=== PATIENT | male | born 1935 | race Two or more races ===

== ENCOUNTER 2024-06-02 23:11 | Inpatient (IN) | payer MEDICARE, OTHER ==
[~2024-06-02] VITALS: Ht 152.4 cm; Wt 62.1 kg
[2024-06-03 00:20] LABS: EOSINOPHILS # (AUTO) 0.3 K/uL (0.0-0.7); EOSINOPHILS % (AUTO) 5.5 % (0.0-6.0); HEMATOCRIT 30 % (39-51); HEMOGLOBIN 9.6 g/dL (13.5-17.5); LYMPHOCYTES # (AUTO) 1.1 K/uL (0.8-4.8); LYMPHOCYTES % (AUTO) 23.8 % (20.0-44.0); MEAN CORPUSCULAR HEMOGLOBIN 25 PG (26.0-33.0); MEAN CORPUSCULAR HGB CONC 32 g/dl (31.0-36.0); MEAN CORPUSCULAR VOLUME 79 fL (80-96); MONOCYTES # (AUTO) 0.7 K/uL (0.1-1.30); MONOCYTES % (AUTO) 15.7 % (2.0-12.0); NEUTROPHILS # (AUTO) 2.4 K/uL (1.8-8.9); PLATELET COUNT (AUTO) 274 K/uL (150-450); RED BLOOD CELL COUNT(AUTO) 3.79 MIL/uL (4.5-6.0); RED CELL DISTRIBUTION WIDTH 16.2 % (11.5-15.0); WHITE BLOOD COUNT (AUTO) 4.5 K/uL (4.3-11.0)
[2024-06-03] MEDS ORDERED: VANCOMYCIN 1 GM /D5W 250 ML PB IV ONE (00:27)
[2024-06-03] MEDS: VANCOMYCIN 1 GM in IV D5W 250 ML IV ONE (00:30)
[2024-06-03 00:31] LABS: CALCIUM, SERUM 6.6 mg/dL (8.5-10.1); CARBON DIOXIDE 29 mmol/L (21-32); CHLORIDE 103 mmol/L (98-107); CREATININE 1.2 mg/dL (0.6-1.3); GLUCOSE 86 mg/dL (74-106); POTASSIUM 3.9 mmol/L (3.5-5.1); SODIUM SERUM 141 mmol/L (136-145); UREA NITROGEN, BLOOD 38 mg/dL (7-18)
[2024-06-03 00:36] LABS: LACTIC ACID 0.8 mmol/L (0.4-2.0)
[2024-06-03 00:43] LABS: ALANINE AMINOTRANSFERASE 12 U/L (12-78); ALBUMIN 2.5 g/dL (3.4-5.0); ALCOHOL, BLOOD < 3 mg/dL (0-10); ALKALINE PHOSPHATASE 95 U/L (46-116); ASPARTATE AMINOTRANSFERASE 14 U/L (15-37); BILIRUBIN,DIRECT 0.1 mg/dL (0.0-0.2); BILIRUBIN,TOTAL 0.3 mg/dL (0.2-1.0); TOTAL PROTEIN, SERUM 7.3 g/dL (6.4-8.2)
[2024-06-03 00:45] LABS: ACETAMINOPHEN <10 ug/ml (10-30); SALICYLATE < 2.3 mg/dL (2.8-20.0)
[2024-06-03 00:53] LABS: INR 1.02 (0.91-1.10); PROTHROMBIN TIME 10.8 SECS (9.2-11.1)
[2024-06-03 00:57] LABS: APPEARANCE,URINE CLEAR (CLEAR); BILIRUBIN,URINE NEGATIVE (NEGATIVE); BLOOD, URINE NEGATIVE Ery/uL (NEGATIVE); COLOR,URINE YELLOW (YELLOW); KETONES,URINE TRACE mg/dL (NEGATIVE); LEUKOCYTE ESTERASE ,URINE NEGATIVE (NEGATIVE); NITRITE, URINE NEGATIVE (NEGATIVE); PROTEIN,URINE NEGATIVE (NEGATIVE); UGLUCOSE NEGATIVE (NEGATIVE)
[2024-06-03 01:02] LABS: ADD URINE CULTURE NO; BACTERIA,URINE Rare /HPF (None Seen); RBC,URINE 0-2 /HPF (0-2); SQUAMOUS EPITHELIAL CELL,UR Few /HPF (None Seen)
[2024-06-03 01:11] LABS: AMPHETAMINE, URINE NEGATIVE (NEGATIVE); BARBITURATE, URINE NEGATIVE (NEGATIVE); BENZODIAZEPINE, URINE NEGATIVE (NEGATIVE); CANNABINOID, URINE NEGATIVE (NEGATIVE); COCCAINE, URINE NEGATIVE (NEGATIVE); OPIATE, URINE NEGATIVE (NEGATIVE); PHENCYCLIDINE SCREEN,URINE NEGATIVE (NEGATIVE)
[2024-06-03 01:30] VITALS: BP 122/82; TEMP 97.7; O2SAT 98
[2024-06-03] MEDS ORDERED: OLANZAPINE 10 MG VIAL IM PRN (02:00)
[2024-06-03] MEDS ORDERED: MAG HYDROX/AL HYDROX/SIMETH 30 ML UDC PO PRN (02:00)
[2024-06-03] MEDS ORDERED: ONDANSETRON HCL/PF 4 MG/2 ML VIAL IVP PRN (02:00)
[2024-06-03] MEDS: ENOXAPARIN SODIUM 40 MG/0.4 ML DISP.SYRIN SQ SCH (03:19)
[2024-06-03] MEDS ORDERED: CETI10TA18 PO (04:17)
[2024-06-03] MEDS ORDERED: LEVO25TA7 PO (04:17)
[2024-06-03] MEDS ORDERED: MELA10CA PO (04:17)
[2024-06-03] MEDS ORDERED: DIVA250T PO (04:17)
[2024-06-03] MEDS ORDERED: AMLO-212 PO (04:17)
[2024-06-03] MEDS ORDERED: CLON0.5T4 PO (04:17)
[2024-06-03] MEDS ORDERED: QUET50TA PO (04:17)
[2024-06-03] MEDS ORDERED: TRAM50TA2 PO (04:17)
[2024-06-03] MEDS ORDERED: FERR-68 PO (04:17)
[2024-06-03] MEDS ORDERED: LORA-259 PO (04:17)
[2024-06-03] MEDS ORDERED: ASPI-1169 PO (04:17)
[2024-06-03 06:37] LABS: BASOPHILS % (AUTO) 0.6 % (0.0-2.0); EOSINOPHILS # (AUTO) 0.3 K/uL (0.0-0.7); EOSINOPHILS % (AUTO) 5.9 % (0.0-6.0); HEMATOCRIT 32 % (39-51); HEMOGLOBIN 10.3 g/dL (13.5-17.5); LYMPHOCYTES % (AUTO) 18.5 % (20.0-44.0); MEAN CORPUSCULAR HEMOGLOBIN 25 PG (26.0-33.0); MEAN CORPUSCULAR HGB CONC 33 g/dl (31.0-36.0); MEAN CORPUSCULAR VOLUME 78 fL (80-96); MONOCYTES # (AUTO) 0.8 K/uL (0.1-1.30); MONOCYTES % (AUTO) 14.9 % (2.0-12.0); NEUTROPHILS # (AUTO) 3.2 K/uL (1.8-8.9); NEUTROPHILS % (AUTO) 60.1 % (43.0-81.0); PLATELET COUNT (AUTO) 289 K/uL (150-450); RED BLOOD CELL COUNT(AUTO) 4.03 MIL/uL (4.5-6.0); RED CELL DISTRIBUTION WIDTH 16.2 % (11.5-15.0); WHITE BLOOD COUNT (AUTO) 5.3 K/uL (4.3-11.0)
[2024-06-03 07:43] LABS: ALANINE AMINOTRANSFERASE 12 U/L (12-78); ALBUMIN 2.3 g/dL (3.4-5.0); ALKALINE PHOSPHATASE 98 U/L (46-116); ASPARTATE AMINOTRANSFERASE 12 U/L (15-37); BILIRUBIN,DIRECT 0.2 mg/dL (0.0-0.2); BILIRUBIN,TOTAL 0.4 mg/dL (0.2-1.0); CALCIUM, SERUM 6.3 mg/dL (8.5-10.1); CARBON DIOXIDE 30 mmol/L (21-32); CHLORIDE 104 mmol/L (98-107); GLUCOSE 82 mg/dL (74-106); MAGNESIUM 2.4 mg/dL (1.8-2.4); PHOSPHORUS 3.7 mg/dL (2.5-4.9); POTASSIUM 3.9 mmol/L (3.5-5.1); SODIUM SERUM 144 mmol/L (136-145); UREA NITROGEN, BLOOD 30 mg/dL (7-18)
[2024-06-03] MEDS ORDERED: DIVA-76 PO (08:00)
[2024-06-03] MEDS: PANTOPRAZOLE 40 MG TABLET.DR PO SCH (08:06)
[2024-06-03] MEDS: MUPIROCIN OINT 2% 22 GM TUBE TP SCH (10:53)
[2024-06-03 10:56] LABS: FERRITIN 176 ng/mL (8-388)
[2024-06-03 11:39] LABS: IRON, SERUM 28 ug/dl (50-175); TOTAL IRON BINDING CAPACITY 182 ug/dl (250-450)
[2024-06-03] MEDS: DIVALPROEX SODIUM 125 MG CAP.SPRINK PO SCH (11:56)
[2024-06-03] MEDS: LORAZEPAM 0.5 MG TABLET PO SCH (11:56)
[2024-06-03] MEDS ORDERED: DIVALPROEX SODIUM 250 MG TABLET.DR PO SCH (17:00)
[2024-06-03] MEDS: FERROUS SULFATE (325 MG) 325 MG/TAB TABLET PO SCH (17:48)
[2024-06-03] MEDS: clonazePAM 0.5 MG TABLET PO SCH (17:48)
[2024-06-03] MEDS: CEFEPIME 1 GM in IV D5W 50 ML IV SCH (17:48)
[2024-06-03 20:00] VITALS: BP 135/78; TEMP 98.1; O2SAT 97
[2024-06-03] MEDS: QUETIAPINE FUMARATE 25 MG TABLET PO SCH (21:33)
[2024-06-03] MEDS ORDERED: Medication Not On Formulary EA (Melatonin 10 MG) PO SCH (22:00)
[2024-06-03] MEDS ORDERED: QUETIAPINE FUMARATE 25 MG TABLET PO SCH (22:00)
[2024-06-03] MEDS: LORAZEPAM 1 MG TABLET PO PRN (23:01)
[2024-06-04] MEDS ORDERED: VANCOMYCIN 1 GM in IV D5W 250ml IV SCH (01:00)
[2024-06-04] MEDS: VANCOMYCIN 750 MG in IV D5W 250 ML IV SCH (01:15)
[2024-06-04 07:08] LABS: CALCIUM, SERUM 6.3 mg/dL (8.5-10.1); CARBON DIOXIDE 25 mmol/L (21-32); CHLORIDE 105 mmol/L (98-107); CREATININE 0.8 mg/dL (0.6-1.3); GLUCOSE 88 mg/dL (74-106); POTASSIUM 3.9 mmol/L (3.5-5.1); SODIUM SERUM 143 mmol/L (136-145); UREA NITROGEN, BLOOD 14 mg/dL (7-18)
[2024-06-04] MEDS: LEVOTHYROXINE SODIUM 25 MCG TABLET PO SCH (08:21)
[2024-06-04] MEDS: ASPIRIN 81 MG TAB.CHEW PO SCH (08:32)
[2024-06-04] MEDS: AMLODIPINE BESYLATE 5 MG TABLET PO SCH (08:32)
[2024-06-04 16:00] VITALS: BP 122/67; TEMP 97.9; O2SAT 97
[2024-06-04 22:10] VITALS: BP 110/96; TEMP 97.7; O2SAT 96
[2024-06-04 23:18] VITALS: BP 110/96; TEMP 97.7; O2SAT 96
[2024-06-05] MEDS: VANCOMYCIN 1 GM in IV D5W 250 ML IV SCH (00:37)
[2024-06-05 07:00] VITALS: BP 144/76; TEMP 98.4; O2SAT 98
[2024-06-05 07:26] LABS: CALCIUM, SERUM 6.8 mg/dL (8.5-10.1); CARBON DIOXIDE 31 mmol/L (21-32); CHLORIDE 105 mmol/L (98-107); CREATININE 0.7 mg/dL (0.6-1.3); GLUCOSE 89 mg/dL (74-106); POTASSIUM 3.9 mmol/L (3.5-5.1); SODIUM SERUM 145 mmol/L (136-145); UREA NITROGEN, BLOOD 12 mg/dL (7-18)
[2024-06-05] MEDS: IV D5/ 0.9% NACL 1,000 ML IV PRN (14:41)
[2024-06-05 16:00] VITALS: BP 125/76; TEMP 97.5; O2SAT 97
[2024-06-05 20:00] VITALS: BP 135/70; TEMP 98.1; O2SAT 95
[2024-06-05] MEDS: Z GUARD REMEDY 4 OZ OINT TP PRN (20:06)
[2024-06-06 07:43] LABS: EOSINOPHILS # (AUTO) 0.3 K/uL (0.0-0.7); HEMATOCRIT 36 % (39-51); HEMOGLOBIN 11.3 g/dL (13.5-17.5); LYMPHOCYTES # (AUTO) 1.1 K/uL (0.8-4.8); LYMPHOCYTES % (AUTO) 27.6 % (20.0-44.0); MEAN CORPUSCULAR HEMOGLOBIN 25 PG (26.0-33.0); MEAN CORPUSCULAR HGB CONC 32 g/dl (31.0-36.0); MEAN CORPUSCULAR VOLUME 79 fL (80-96); MONOCYTES # (AUTO) 0.5 K/uL (0.1-1.30); MONOCYTES % (AUTO) 12.8 % (2.0-12.0); NEUTROPHILS # (AUTO) 2.1 K/uL (1.8-8.9); NEUTROPHILS % (AUTO) 51.6 % (43.0-81.0); PLATELET COUNT (AUTO) 382 K/uL (150-450); RED BLOOD CELL COUNT(AUTO) 4.48 MIL/uL (4.5-6.0); WHITE BLOOD COUNT (AUTO) 4.1 K/uL (4.3-11.0)
[2024-06-06 07:51] LABS: CALCIUM, SERUM 6.8 mg/dL (8.5-10.1); CARBON DIOXIDE 29 mmol/L (21-32); CHLORIDE 105 mmol/L (98-107); CREATININE 0.8 mg/dL (0.6-1.3); GLUCOSE 92 mg/dL (74-106); MAGNESIUM 2.3 mg/dL (1.8-2.4); PHOSPHORUS 3.9 mg/dL (2.5-4.9); POTASSIUM 3.8 mmol/L (3.5-5.1); SODIUM SERUM 144 mmol/L (136-145); UREA NITROGEN, BLOOD 10 mg/dL (7-18)
[2024-06-06 08:00] VITALS: BP 132/100; TEMP 99.5; O2SAT 94
[2024-06-06 16:00] VITALS: BP 137/89; TEMP 99.7; O2SAT 98
[2024-06-06 20:00] VITALS: BP 128/71; TEMP 98.1; O2SAT 97
[2024-06-06] MEDS: PERMETHRIN 5% CRM 60 GM TUBE TP ONE (20:41)
[2024-06-07 07:08] LABS: CALCIUM, SERUM 6.1 mg/dL (8.5-10.1); CARBON DIOXIDE 34 mmol/L (21-32); CHLORIDE 105 mmol/L (98-107); CREATININE 0.8 mg/dL (0.6-1.3); GLUCOSE 91 mg/dL (74-106); POTASSIUM 4.3 mmol/L (3.5-5.1); SODIUM SERUM 142 mmol/L (136-145); UREA NITROGEN, BLOOD 13 mg/dL (7-18)
[2024-06-07 07:09] LABS: BILIRUBIN,TOTAL 0.3 mg/dL (0.2-1.0); TOTAL PROTEIN, SERUM 6.7 g/dL (6.4-8.2)
[2024-06-07 08:00] VITALS: BP 138/79; TEMP 99.5; O2SAT 100
[2024-06-07] MEDS: QUETIAPINE FUMARATE 25 MG TABLET PO SCH ×2 (13:19→22:18)
[2024-06-07] MEDS: DIVALPROEX SODIUM 125 MG CAP.SPRINK PO SCH (13:19)
[2024-06-07 16:00] VITALS: BP 135/62; TEMP 99.7; O2SAT 96
[2024-06-07] MEDS: clonazePAM 0.5 MG TABLET PO SCH (17:14)
[2024-06-07 20:00] VITALS: BP_SYST 139; BP_SYST 147; BP_DIAS 66; BP_DIAS 77; TEMP 98.8; O2SAT 94
[2024-06-08] MEDS: VANCOMYCIN HCL 1.25 GM in IV D5W 250 ML IV SCH (00:22)
[2024-06-08 07:25] LABS: BASOPHILS % (AUTO) 1.1 % (0.0-2.0); EOSINOPHILS # (AUTO) 0.4 K/uL (0.0-0.7); EOSINOPHILS % (AUTO) 8.8 % (0.0-6.0); HEMATOCRIT 34 % (39-51); HEMOGLOBIN 10.8 g/dL (13.5-17.5); LYMPHOCYTES # (AUTO) 1.2 K/uL (0.8-4.8); LYMPHOCYTES % (AUTO) 29.7 % (20.0-44.0); MEAN CORPUSCULAR HEMOGLOBIN 25 PG (26.0-33.0); MEAN CORPUSCULAR HGB CONC 32 g/dl (31.0-36.0); MEAN CORPUSCULAR VOLUME 79 fL (80-96); MONOCYTES # (AUTO) 0.5 K/uL (0.1-1.30); MONOCYTES % (AUTO) 12.7 % (2.0-12.0); NEUTROPHILS # (AUTO) 1.9 K/uL (1.8-8.9); NEUTROPHILS % (AUTO) 47.7 % (43.0-81.0); PLATELET COUNT (AUTO) 326 K/uL (150-450); RED BLOOD CELL COUNT(AUTO) 4.25 MIL/uL (4.5-6.0); RED CELL DISTRIBUTION WIDTH 16.2 % (11.5-15.0)
[2024-06-08 07:36] LABS: CALCIUM, SERUM 6.5 mg/dL (8.5-10.1); CARBON DIOXIDE 34 mmol/L (21-32); CHLORIDE 105 mmol/L (98-107); CREATININE 0.8 mg/dL (0.6-1.3); GLUCOSE 90 mg/dL (74-106); MAGNESIUM 2.1 mg/dL (1.8-2.4); PHOSPHORUS 3.8 mg/dL (2.5-4.9); POTASSIUM 3.4 mmol/L (3.5-5.1); SODIUM SERUM 143 mmol/L (136-145); UREA NITROGEN, BLOOD 13 mg/dL (7-18)
[2024-06-08] MEDS: POTASSIUM CHLORIDE 20 MEQ TAB.PRT.SR PO SCH (09:50)
[2024-06-08 20:00] VITALS: BP 144/71; TEMP 98; O2SAT 96
[2024-06-08] MEDS: MAGNESIUM HYDROXIDE 30 ML UDC PO PRN (22:24)
[2024-06-09 07:30] VITALS: BP_SYST 141; BP_SYST 147; BP_DIAS 85; BP_DIAS 99; TEMP 97.9; O2SAT 100; O2SAT 98
[2024-06-09 15:46] LABS: CALCIUM, SERUM 6.5 mg/dL (8.5-10.1); CARBON DIOXIDE 34 mmol/L (21-32); CHLORIDE 106 mmol/L (98-107); CREATININE 0.8 mg/dL (0.6-1.3); GLUCOSE 102 mg/dL (74-106); POTASSIUM 4.1 mmol/L (3.5-5.1); SODIUM SERUM 146 mmol/L (136-145); UREA NITROGEN, BLOOD 13 mg/dL (7-18)
[2024-06-09 16:00] VITALS: BP 135/90; TEMP 97.7; O2SAT 99
[2024-06-09 20:00] VITALS: BP 136/88; TEMP 97.9; O2SAT 97
[2024-06-10 06:05] LABS: BASOPHILS % (AUTO) 1.3 % (0.0-2.0); EOSINOPHILS # (AUTO) 0.3 K/uL (0.0-0.7); EOSINOPHILS % (AUTO) 7.9 % (0.0-6.0); HEMATOCRIT 34 % (39-51); HEMOGLOBIN 10.7 g/dL (13.5-17.5); LYMPHOCYTES # (AUTO) 1.1 K/uL (0.8-4.8); LYMPHOCYTES % (AUTO) 28.3 % (20.0-44.0); MEAN CORPUSCULAR HEMOGLOBIN 25 PG (26.0-33.0); MEAN CORPUSCULAR HGB CONC 32 g/dl (31.0-36.0); MEAN CORPUSCULAR VOLUME 79 fL (80-96); MONOCYTES # (AUTO) 0.5 K/uL (0.1-1.30); MONOCYTES % (AUTO) 12.8 % (2.0-12.0); NEUTROPHILS % (AUTO) 49.7 % (43.0-81.0); PLATELET COUNT (AUTO) 309 K/uL (150-450); RED BLOOD CELL COUNT(AUTO) 4.23 MIL/uL (4.5-6.0); RED CELL DISTRIBUTION WIDTH 16.4 % (11.5-15.0)
[2024-06-10 06:28] LABS: CALCIUM, SERUM 6.5 mg/dL (8.5-10.1); CARBON DIOXIDE 34 mmol/L (21-32); CHLORIDE 105 mmol/L (98-107); CREATININE 0.8 mg/dL (0.6-1.3); GLUCOSE 83 mg/dL (74-106); MAGNESIUM 2.4 mg/dL (1.8-2.4); PHOSPHORUS 3.1 mg/dL (2.5-4.9); POTASSIUM 3.3 mmol/L (3.5-5.1); SODIUM SERUM 145 mmol/L (136-145); UREA NITROGEN, BLOOD 13 mg/dL (7-18)
[2024-06-10 07:00] VITALS: BP 126/64; TEMP 97.7; O2SAT 96
[2024-06-10 12:00] VITALS: BP 126/64; TEMP 97.7; O2SAT 96
[2024-06-10] MEDS: POTASSIUM CHLORIDE 20 MEQ TAB.PRT.SR PO SCH (12:24)
[2024-06-10 16:00] VITALS: BP 120/60; TEMP 97.7; O2SAT 98
[2024-06-10 16:37] LABS: CALCIUM, SERUM 6.5 mg/dL (8.5-10.1); CARBON DIOXIDE 33 mmol/L (21-32); CHLORIDE 104 mmol/L (98-107); CREATININE 0.8 mg/dL (0.6-1.3); GLUCOSE 125 mg/dL (74-106); POTASSIUM 3.9 mmol/L (3.5-5.1); SODIUM SERUM 142 mmol/L (136-145); UREA NITROGEN, BLOOD 16 mg/dL (7-18)
[2024-06-10 20:08] VITALS: BP 127/70; TEMP 97.7; O2SAT 94
[2024-06-10] MEDS: ZOLPIDEM TARTRATE 5 MG TABLET PO PRN (21:20)
[2024-06-11] MEDS: VANCOMYCIN 1 GM in IV D5W 250 ML IV SCH (01:15)
[2024-06-11 07:54] LABS: BASOPHILS % (AUTO) 1.1 % (0.0-2.0); EOSINOPHILS # (AUTO) 0.3 K/uL (0.0-0.7); EOSINOPHILS % (AUTO) 6.1 % (0.0-6.0); HEMATOCRIT 34 % (39-51); LYMPHOCYTES # (AUTO) 1.1 K/uL (0.8-4.8); LYMPHOCYTES % (AUTO) 25.1 % (20.0-44.0); MEAN CORPUSCULAR HEMOGLOBIN 26 PG (26.0-33.0); MEAN CORPUSCULAR HGB CONC 32 g/dl (31.0-36.0); MEAN CORPUSCULAR VOLUME 79 fL (80-96); MONOCYTES # (AUTO) 0.5 K/uL (0.1-1.30); MONOCYTES % (AUTO) 11.7 % (2.0-12.0); NEUTROPHILS # (AUTO) 2.4 K/uL (1.8-8.9); PLATELET COUNT (AUTO) 311 K/uL (150-450); RED BLOOD CELL COUNT(AUTO) 4.29 MIL/uL (4.5-6.0); RED CELL DISTRIBUTION WIDTH 16.7 % (11.5-15.0); WHITE BLOOD COUNT (AUTO) 4.4 K/uL (4.3-11.0)
[2024-06-11 08:00] VITALS: BP 179/92; TEMP 98.1; O2SAT 98
[2024-06-11 08:08] LABS: CALCIUM, SERUM 7.3 mg/dL (8.5-10.1); CARBON DIOXIDE 27 mmol/L (21-32); CHLORIDE 104 mmol/L (98-107); CREATININE 0.8 mg/dL (0.6-1.3); GLUCOSE 92 mg/dL (74-106); MAGNESIUM 2.4 mg/dL (1.8-2.4); POTASSIUM 3.6 mmol/L (3.5-5.1); SODIUM SERUM 143 mmol/L (136-145); UREA NITROGEN, BLOOD 15 mg/dL (7-18)
[2024-06-11 15:20] LABS: CALCIUM, SERUM 6.4 mg/dL (8.5-10.1); CARBON DIOXIDE 30 mmol/L (21-32); CHLORIDE 105 mmol/L (98-107); CREATININE 0.7 mg/dL (0.6-1.3); GLUCOSE 95 mg/dL (74-106); POTASSIUM 3.5 mmol/L (3.5-5.1); SODIUM SERUM 144 mmol/L (136-145); UREA NITROGEN, BLOOD 10 mg/dL (7-18)
[2024-06-11 16:00] VITALS: BP 137/66; TEMP 98.3; O2SAT 96
[2024-06-11 20:00] VITALS: BP 114/97; TEMP 97.9; O2SAT 96
[2024-06-12 07:00] VITALS: BP 103/77; TEMP 97.9; O2SAT 96
[2024-06-12 14:53] LABS: CALCIUM, SERUM 6.8 mg/dL (8.5-10.1); CARBON DIOXIDE 28 mmol/L (21-32); CHLORIDE 104 mmol/L (98-107); GLUCOSE 107 mg/dL (74-106); POTASSIUM 3.8 mmol/L (3.5-5.1); SODIUM SERUM 142 mmol/L (136-145); UREA NITROGEN, BLOOD 12 mg/dL (7-18)
[2024-06-12 16:00] VITALS: BP 103/74; TEMP 97.4; O2SAT 96
[2024-06-12 20:00] VITALS: BP 127/65; TEMP 98.2; O2SAT 94
[2024-06-13 08:00] VITALS: BP 122/54; TEMP 99; O2SAT 98
[2024-06-13 08:30] VITALS: BP 114/58; TEMP 97.2; O2SAT 96
[2024-06-13] MEDS: QUETIAPINE FUMARATE 25 MG TABLET PO SCH ×2 (12:17→21:26)
[2024-06-13 15:15] LABS: CALCIUM, SERUM 6.8 mg/dL (8.5-10.1); CARBON DIOXIDE 33 mmol/L (21-32); CHLORIDE 102 mmol/L (98-107); GLUCOSE 96 mg/dL (74-106); POTASSIUM 3.6 mmol/L (3.5-5.1); SODIUM SERUM 141 mmol/L (136-145); UREA NITROGEN, BLOOD 14 mg/dL (7-18)
[2024-06-13 16:00] VITALS: BP 133/64; TEMP 99.1; O2SAT 98
[2024-06-13 20:00] VITALS: BP 114/58; TEMP 97.2; O2SAT 96
[2024-06-13] MEDS: DIVALPROEX SODIUM 125 MG CAP.SPRINK PO SCH (21:26)
[2024-06-14 07:07] LABS: BASOPHILS # (AUTO) 0.1 K/uL (0.0-0.2); BASOPHILS % (AUTO) 1.1 % (0.0-2.0); EOSINOPHILS # (AUTO) 0.3 K/uL (0.0-0.7); EOSINOPHILS % (AUTO) 5.8 % (0.0-6.0); HEMATOCRIT 32 % (39-51); HEMOGLOBIN 10.1 g/dL (13.5-17.5); LYMPHOCYTES # (AUTO) 1.4 K/uL (0.8-4.8); LYMPHOCYTES % (AUTO) 24.3 % (20.0-44.0); MEAN CORPUSCULAR HEMOGLOBIN 26 PG (26.0-33.0); MEAN CORPUSCULAR HGB CONC 32 g/dl (31.0-36.0); MEAN CORPUSCULAR VOLUME 79 fL (80-96); MONOCYTES # (AUTO) 0.7 K/uL (0.1-1.30); MONOCYTES % (AUTO) 13.3 % (2.0-12.0); NEUTROPHILS # (AUTO) 3.1 K/uL (1.8-8.9); NEUTROPHILS % (AUTO) 55.5 % (43.0-81.0); PLATELET COUNT (AUTO) 270 K/uL (150-450); RED BLOOD CELL COUNT(AUTO) 3.98 MIL/uL (4.5-6.0); RED CELL DISTRIBUTION WIDTH 16.6 % (11.5-15.0); WHITE BLOOD COUNT (AUTO) 5.6 K/uL (4.3-11.0)
[2024-06-14 07:19] LABS: CARBON DIOXIDE 31 mmol/L (21-32); CHLORIDE 104 mmol/L (98-107); CREATININE 0.9 mg/dL (0.6-1.3); GLUCOSE 85 mg/dL (74-106); MAGNESIUM 2.2 mg/dL (1.8-2.4); POTASSIUM 3.8 mmol/L (3.5-5.1); SODIUM SERUM 142 mmol/L (136-145); UREA NITROGEN, BLOOD 14 mg/dL (7-18)
[2024-06-14 07:30] VITALS: BP 136/104; O2SAT 90
[2024-06-14 08:35] VITALS: BP 143/76; TEMP 98.2; O2SAT 98
[2024-06-14] MEDS: ACETAMINOPHEN 325 MG TABLET PO PRN (14:38)
[2024-06-14 16:00] VITALS: BP 155/105; TEMP 98.6
[2024-06-14 16:55] LABS: CARBON DIOXIDE 33 mmol/L (21-32); CHLORIDE 104 mmol/L (98-107); CREATININE 0.9 mg/dL (0.6-1.3); GLUCOSE 98 mg/dL (74-106); POTASSIUM 3.6 mmol/L (3.5-5.1); SODIUM SERUM 143 mmol/L (136-145); UREA NITROGEN, BLOOD 12 mg/dL (7-18)
[2024-06-14 20:00] VITALS: BP 143/76; TEMP 98.2; O2SAT 98
[2024-06-14] MEDS: PERMETHRIN 5% CRM 60 GM TUBE TP ONE (20:06)
[2024-06-15 08:00] VITALS: BP 146/61; TEMP 97.9; O2SAT 98
[2024-06-15 16:00] VITALS: BP 148/79; TEMP 98.4; O2SAT 96
[2024-06-15] MEDS ORDERED: OLANZAPINE 2.5 MG TABLET PO PRN (16:00)
[2024-06-15] MEDS: OLANZAPINE 2.5 MG TABLET PO SCH (16:49)
[2024-06-15 20:00] VITALS: BP 120/70; TEMP 97.7; O2SAT 95
[2024-06-15] MEDS: OLANZAPINE 10 MG TABLET PO SCH (21:46)
[2024-06-15 22:42] VITALS: BP 120/70; TEMP 97.7; O2SAT 95
[2024-06-16 08:00] VITALS: BP 140/52; TEMP 98.9; O2SAT 84
[2024-06-16 16:00] VITALS: BP 134/53; TEMP 97.9; O2SAT 100
[2024-06-16 20:00] VITALS: BP 143/95; TEMP 98.4; O2SAT 96
[2024-06-17] VITALS: BP 143/95; TEMP 98.4; O2SAT 100
[2024-06-17 07:24] LABS: CALCIUM, SERUM 7.2 mg/dL (8.5-10.1); CARBON DIOXIDE 31 mmol/L (21-32); CHLORIDE 103 mmol/L (98-107); CREATININE 0.8 mg/dL (0.6-1.3); GLUCOSE 86 mg/dL (74-106); POTASSIUM 3.4 mmol/L (3.5-5.1); SODIUM SERUM 143 mmol/L (136-145); UREA NITROGEN, BLOOD 14 mg/dL (7-18)
[2024-06-17 08:38] VITALS: BP 144/92; TEMP 97.7; O2SAT 100
[2024-06-17] MEDS: PANTOPRAZOLE 40 MG/PACK PACK PO SCH (09:24)
[2024-06-17] MEDS ORDERED: POTASSIUM CHLORIDE 20 MEQ TAB.PRT.SR PO ONE (11:00)
[2024-06-17] MEDS: POTASSIUM CL. PREMIX PERIPHER. 50 ML IV SCH (11:33)
[2024-06-17] MEDS: risperiDONE 0.25 MG TABLET PO SCH (14:21)
[2024-06-17 16:52] VITALS: BP 154/102; TEMP 97.7; O2SAT 100
[2024-06-17 20:00] VITALS: BP_SYST 141; BP_SYST 154; BP_DIAS 102; BP_DIAS 113; TEMP 97.7; TEMP 98.2; O2SAT 100; O2SAT 95
[2024-06-18 07:26] LABS: CALCIUM, SERUM 6.6 mg/dL (8.5-10.1); CARBON DIOXIDE 30 mmol/L (21-32); CHLORIDE 105 mmol/L (98-107); CREATININE 0.7 mg/dL (0.6-1.3); GLUCOSE 92 mg/dL (74-106); POTASSIUM 3.6 mmol/L (3.5-5.1); SODIUM SERUM 143 mmol/L (136-145); UREA NITROGEN, BLOOD 13 mg/dL (7-18)
[2024-06-18 07:30] VITALS: BP 105/64; TEMP 98.6; O2SAT 100
[2024-06-18] MEDS ORDERED: SULF1TAB48 PO (17:51)
[2024-06-18 20:00] VITALS: BP 139/49; TEMP 98.1; O2SAT 96
[2024-06-18] MEDS: SULFAMETH/TRIMETH 800/160 MG 1 UDTAB TABLET PO SCH (21:00)
[2024-06-18] MEDS: OLANZAPINE 10 MG VIAL IM PRN (21:53)
[2024-06-19 06:52] LABS: CALCIUM, SERUM 6.5 mg/dL (8.5-10.1); CARBON DIOXIDE 29 mmol/L (21-32); CHLORIDE 108 mmol/L (98-107); CREATININE 0.8 mg/dL (0.6-1.3); GLUCOSE 94 mg/dL (74-106); POTASSIUM 3.5 mmol/L (3.5-5.1); SODIUM SERUM 147 mmol/L (136-145); UREA NITROGEN, BLOOD 10 mg/dL (7-18)
[2024-06-19 07:30] VITALS: BP 142/107; TEMP 98.1; O2SAT 100
[2024-06-19] MEDS: risperiDONE 1 MG TABLET PO SCH ×2 (08:29→13:00)
[2024-06-19 20:22] VITALS: BP 142/63; TEMP 98.2; O2SAT 97
[2024-06-20 06:49] LABS: CALCIUM, SERUM 6.6 mg/dL (8.5-10.1); CARBON DIOXIDE 23 mmol/L (21-32); CHLORIDE 106 mmol/L (98-107); CREATININE 0.7 mg/dL (0.6-1.3); GLUCOSE 90 mg/dL (74-106); POTASSIUM 3.4 mmol/L (3.5-5.1); SODIUM SERUM 144 mmol/L (136-145); UREA NITROGEN, BLOOD 12 mg/dL (7-18)
[2024-06-20 08:00] VITALS: BP 146/92; TEMP 98.2; O2SAT 96
[2024-06-20 08:12] VITALS: BP 146/92
[2024-06-20] MEDS: POTASSIUM CHLORIDE 20 MEQ POWDER PACKET PO ONE (09:27)
[2024-06-20] MEDS: POTASSIUM CHLORIDE 20 MEQ TAB.PRT.SR PO SCH (09:58)
[2024-06-20] MEDS ORDERED: MAG30ORA PO (17:51)
[2024-06-20] MEDS ORDERED: DIVA-76 PO (17:51)
[2024-06-20] MEDS ORDERED: OLAN2.5T3 PO (17:51)
[2024-06-20] MEDS ORDERED: MUPI22OI7 TP (17:51)
[2024-06-20] MEDS ORDERED: RISP1TAB7 PO (17:51)
[2024-06-20] MEDS ORDERED: PANT40SU2 PO (17:51)
[2024-06-20] MEDS ORDERED: MAGN400O6 PO (17:51)
[2024-06-20] MEDS ORDERED: ENOX40DI SQ (17:51)
[2024-06-20] MEDS ORDERED: LORA-258 PO (17:51)
[2024-06-20] MEDS ORDERED: ALLA266C2 TP (17:51)
[2024-06-20] MEDS ORDERED: ACET325T53 PO (17:51)
[2024-06-20] MEDS ORDERED: OLANZAPINE 2.5 MG TABLET PO SCH (22:00)
== END 2024-06-20 15:10 | DRG 602 ==
LOC: ER 23:20 → MED 06-03 01:19
PROVIDERS: ADMIT Internal Medicine; ATTEND Nurse Practitioner Acute Care
DX: L03.113 Cellulitis of right upper limb (principal); E43 Unspecified severe protein-calorie malnutrition; F03.93 Unspecified dementia, unspecified severity, with mood disturbance; F05 Delirium due to known physiological condition; F03.92 Unspecified dementia, unspecified severity, with psychotic disturbance; I10 Essential (primary) hypertension; R13.10 Dysphagia, unspecified; E03.9 Hypothyroidism, unspecified; D50.9 Iron deficiency anemia, unspecified; L02.413 Cutaneous abscess of right upper limb; B86 Scabies; F31.9 Bipolar disorder, unspecified; E87.6 Hypokalemia; F29 Unspecified psychosis not due to a substance or known physiological condition; F39 Unspecified mood [affective] disorder; Z68.26 Body mass index [BMI] 26.0-26.9, adult; B95.62 Methicillin resistant Staphylococcus aureus infection as the cause of diseases classified elsewhere
CPT/HCPCS: 36415; 80048-TC; 80076-TC; 80164-TC; 80202-TC; 81001; 82728-TC; 83540-TC; 83605-TC; 83735-TC; 84100-TC; 84443-TC; 85025-TC; 85730-TC; 87040-TC; 87081-TC; 97110-TC; 97112-TC; 97116-TC; 97530-TC; A4223; A6253; A6403; G0378; G0480; J0692; J1650; J3370; J3371; J3480; J3490; J7042; J7050; J7060

== ENCOUNTER 2024-06-20 14:49 | Inpatient (IN) | payer MEDICARE, OTHER ==
[~2024-06-20] VITALS: Ht 162.6 cm; Wt 54.0 kg
[~2024-06-20 14:49] MED LIST: AMLO-212 PO; ASPI-1169 PO; CETI10TA18 PO; CLON0.5T4 PO; DIVA-76 PO; FERR-68 PO; LEVO25TA7 PO; LORA-259 PO; MELA10CA PO; QUET50TA PO; SULF1TAB48 PO; TRAM50TA2 PO
[2024-06-20] MEDS ORDERED: ACETAMINOPHEN 325 MG TABLET PO PRN (15:30)
[2024-06-20] MEDS ORDERED: MAG HYDROX/AL HYDROX/SIMETH 30 ML UDC PO PRN (15:30)
[2024-06-20] MEDS ORDERED: MAGNESIUM HYDROXIDE 30 ML UDC PO PRN (15:30)
[2024-06-20 16:00] VITALS: BP 113/80; TEMP 98; O2SAT 99
[2024-06-20] MEDS ORDERED: LORA-258 PO (17:51)
[2024-06-20] MEDS ORDERED: ACET325T53 PO (17:51)
[2024-06-20] MEDS ORDERED: ALLA266C2 TP (17:51)
[2024-06-20] MEDS ORDERED: PANT40SU2 PO (17:51)
[2024-06-20] MEDS ORDERED: RISP1TAB7 PO (17:51)
[2024-06-20] MEDS ORDERED: MAGN400O6 PO (17:51)
[2024-06-20] MEDS ORDERED: OLAN2.5T3 PO (17:51)
[2024-06-20] MEDS ORDERED: MUPI22OI7 TP (17:51)
[2024-06-20] MEDS ORDERED: ENOX40DI SQ (17:51)
[2024-06-20] MEDS ORDERED: DIVA-76 PO (17:51)
[2024-06-20] MEDS ORDERED: MAG30ORA PO (17:51)
[2024-06-20] MEDS ORDERED: TRAMADOL HCL 50 MG TABLET PO PRN (20:00)
[2024-06-20 21:19] VITALS: BP 114/50; TEMP 98.4; O2SAT 99
[2024-06-20] MEDS: SULFAMETH/TRIMETH 800/160 MG 1 UDTAB TABLET PO SCH (21:47)
[2024-06-20] MEDS: MUPIROCIN OINT 2% 22 GM TUBE TP SCH (21:47)
[2024-06-20] MEDS: ENOXAPARIN SODIUM 40 MG/0.4 ML DISP.SYRIN SQ SCH (21:51)
[2024-06-21 08:00] VITALS: BP 139/99; TEMP 97.8; O2SAT 100
[2024-06-21] MEDS: cetrizine 10 MG TABLET PO SCH (09:09)
[2024-06-21] MEDS: PANTOPRAZOLE 40 MG/PACK PACK PO SCH (09:09)
[2024-06-21] MEDS: AMLODIPINE BESYLATE 5 MG TABLET PO SCH (09:09)
[2024-06-21] MEDS: FERROUS SULFATE (325 MG) 325 MG/TAB TABLET PO SCH (09:10)
[2024-06-21] MEDS: LEVOTHYROXINE SODIUM 25 MCG TABLET PO SCH (09:10)
[2024-06-21] MEDS: ASPIRIN 81 MG TAB.CHEW PO SCH (09:10)
[2024-06-21] MEDS: DIVALPROEX SODIUM 125 MG CAP.SPRINK PO SCH ×2 (13:23→21:31)
[2024-06-21] MEDS: risperiDONE 1 MG TABLET PO SCH (13:24)
[2024-06-21 16:00] VITALS: BP 106/73; TEMP 98.1; O2SAT 99
[2024-06-21 16:23] LABS: CREATININE 1.8 mg/dL (0.6-1.3)
[2024-06-21 16:25] LABS: CHOLESTEROL 190 mg/dL (<200); HDL CHOLESTEROL 69 mg/dL (40-60); LDL 100 mg/dL (0-99); TRIGLYCERIDES 56 mg/dL (30-150)
[2024-06-21 16:29] LABS: ALANINE AMINOTRANSFERASE 27 U/L (12-78); ALBUMIN 2.7 g/dL (3.4-5.0); ALKALINE PHOSPHATASE 94 U/L (46-116); ASPARTATE AMINOTRANSFERASE 48 U/L (15-37); BILIRUBIN,TOTAL 0.3 mg/dL (0.2-1.0); CARBON DIOXIDE 21 mmol/L (21-32); CHLORIDE 101 mmol/L (98-107); CREATININE 1.8 mg/dL (0.6-1.3); GLUCOSE 139 mg/dL (74-106); POTASSIUM 3.8 mmol/L (3.5-5.1); SODIUM SERUM 142 mmol/L (136-145); TOTAL PROTEIN, SERUM 7.8 g/dL (6.4-8.2); UREA NITROGEN, BLOOD 33 mg/dL (7-18)
[2024-06-21 20:37] VITALS: BP 112/88; TEMP 98.6; O2SAT 96
[2024-06-21] MEDS: OLANZAPINE 10 MG TABLET PO SCH (21:31)
[2024-06-21] MEDS: SULFAMETH/TRIMETH 800/160 MG 1 UDTAB TABLET PO SCH (21:31)
[2024-06-22] MEDS: LORAZEPAM 0.5 MG TABLET PO PRN (05:43)
[2024-06-22 08:00] VITALS: BP 99/69; TEMP 98.7; O2SAT 98
[2024-06-22 16:00] VITALS: BP 112/62; TEMP 97.9; O2SAT 98
[2024-06-22 20:00] VITALS: BP 99/87; TEMP 97.6; O2SAT 98
[2024-06-23] MEDS: TEMAZEPAM 7.5 MG CAPSULE PO PRN (00:21)
[2024-06-23 08:00] VITALS: BP 109/64; TEMP 98; O2SAT 98
[2024-06-23] MEDS: Z GUARD REMEDY 4 OZ OINT TP PRN (08:18)
[2024-06-23 14:57] LABS: BASOPHILS % (AUTO) 0.8 % (0.0-2.0); EOSINOPHILS # (AUTO) 0.2 K/uL (0.0-0.7); EOSINOPHILS % (AUTO) 6.3 % (0.0-6.0); HEMATOCRIT 31 % (39-51); HEMOGLOBIN 9.9 g/dL (13.5-17.5); LYMPHOCYTES # (AUTO) 0.9 K/uL (0.8-4.8); LYMPHOCYTES % (AUTO) 22.9 % (20.0-44.0); MEAN CORPUSCULAR HEMOGLOBIN 26 PG (26.0-33.0); MEAN CORPUSCULAR HGB CONC 32 g/dl (31.0-36.0); MEAN CORPUSCULAR VOLUME 80 fL (80-96); MONOCYTES # (AUTO) 0.5 K/uL (0.1-1.30); MONOCYTES % (AUTO) 13.9 % (2.0-12.0); NEUTROPHILS # (AUTO) 2.1 K/uL (1.8-8.9); NEUTROPHILS % (AUTO) 56.1 % (43.0-81.0); PLATELET COUNT (AUTO) 199 K/uL (150-450); RED BLOOD CELL COUNT(AUTO) 3.85 MIL/uL (4.5-6.0); RED CELL DISTRIBUTION WIDTH 17.8 % (11.5-15.0); WHITE BLOOD COUNT (AUTO) 3.7 K/uL (4.3-11.0)
[2024-06-23 15:28] LABS: VALPROIC ACID 71 ug/mL (50-100)
[2024-06-23 15:29] LABS: ALANINE AMINOTRANSFERASE 19 U/L (12-78); ALBUMIN 2.6 g/dL (3.4-5.0); ALKALINE PHOSPHATASE 82 U/L (46-116); ASPARTATE AMINOTRANSFERASE 29 U/L (15-37); BILIRUBIN,TOTAL 0.3 mg/dL (0.2-1.0); CALCIUM, SERUM 6.8 mg/dL (8.5-10.1); CARBON DIOXIDE 29 mmol/L (21-32); CHLORIDE 99 mmol/L (98-107); CREATININE 1.2 mg/dL (0.6-1.3); GLUCOSE 113 mg/dL (74-106); POTASSIUM 3.6 mmol/L (3.5-5.1); SODIUM SERUM 139 mmol/L (136-145); TOTAL PROTEIN, SERUM 7.2 g/dL (6.4-8.2); UREA NITROGEN, BLOOD 39 mg/dL (7-18)
[2024-06-23 16:00] VITALS: BP 120/60; TEMP 97.9; O2SAT 96
[2024-06-23 20:00] VITALS: BP 115/88; TEMP 98; O2SAT 97
[2024-06-24 08:00] VITALS: BP 153/93; TEMP 98; O2SAT 97
[2024-06-24 16:00] VITALS: BP 113/83; TEMP 97.9; O2SAT 94
[2024-06-24 20:00] VITALS: BP 137/82; TEMP 97.8; O2SAT 97
[2024-06-25 08:00] VITALS: BP 129/59; TEMP 97.8; O2SAT 97
[2024-06-25] MEDS: OLANZAPINE 10 MG VIAL IM ONE (08:26)
[2024-06-25] MEDS: diphenhydrAMINE HCL 50 MG/ML VIAL IM ONE (08:26)
[2024-06-25 16:00] VITALS: BP 129/61; TEMP 98; O2SAT 98
[2024-06-25 20:27] VITALS: BP 102/70; TEMP 98; O2SAT 96
[2024-06-26 08:00] VITALS: BP 110/64; TEMP 97.7; O2SAT 97
[2024-06-26 13:24] LABS: BASOPHILS % (AUTO) 1.2 % (0.0-2.0); EOSINOPHILS # (AUTO) 0.2 K/uL (0.0-0.7); EOSINOPHILS % (AUTO) 5.9 % (0.0-6.0); HEMATOCRIT 30 % (39-51); HEMOGLOBIN 10.1 g/dL (13.5-17.5); LYMPHOCYTES # (AUTO) 0.9 K/uL (0.8-4.8); LYMPHOCYTES % (AUTO) 26.3 % (20.0-44.0); MEAN CORPUSCULAR HEMOGLOBIN 26 PG (26.0-33.0); MEAN CORPUSCULAR HGB CONC 33 g/dl (31.0-36.0); MEAN CORPUSCULAR VOLUME 79 fL (80-96); MONOCYTES # (AUTO) 0.5 K/uL (0.1-1.30); MONOCYTES % (AUTO) 15.6 % (2.0-12.0); NEUTROPHILS # (AUTO) 1.7 K/uL (1.8-8.9); PLATELET COUNT (AUTO) 181 K/uL (150-450); RED BLOOD CELL COUNT(AUTO) 3.82 MIL/uL (4.5-6.0); RED CELL DISTRIBUTION WIDTH 17.6 % (11.5-15.0); WHITE BLOOD COUNT (AUTO) 3.4 K/uL (4.3-11.0)
[2024-06-26 13:42] LABS: VALPROIC ACID 50 ug/mL (50-100)
[2024-06-26 13:55] LABS: ALANINE AMINOTRANSFERASE 19 U/L (12-78); ALBUMIN 2.2 g/dL (3.4-5.0); ALKALINE PHOSPHATASE 73 U/L (46-116); ASPARTATE AMINOTRANSFERASE 33 U/L (15-37); BILIRUBIN,TOTAL 0.3 mg/dL (0.2-1.0); CALCIUM, SERUM 7.3 mg/dL (8.5-10.1); CARBON DIOXIDE 28 mmol/L (21-32); CHLORIDE 104 mmol/L (98-107); CREATININE 0.8 mg/dL (0.6-1.3); GLUCOSE 111 mg/dL (74-106); POTASSIUM 3.9 mmol/L (3.5-5.1); SODIUM SERUM 140 mmol/L (136-145); TOTAL PROTEIN, SERUM 6.4 g/dL (6.4-8.2); UREA NITROGEN, BLOOD 21 mg/dL (7-18)
[2024-06-26 16:05] VITALS: BP 107/68; TEMP 97.7; O2SAT 96
[2024-06-26 20:56] VITALS: BP 130/60; TEMP 98; O2SAT 97
[2024-06-27 08:00] VITALS: BP 162/70; TEMP 97.7; O2SAT 94
[2024-06-27 16:00] VITALS: BP 116/77; TEMP 97.7; O2SAT 95
[2024-06-27] MEDS: DIVALPROEX SODIUM 125 MG CAP.SPRINK PO SCH ×2 (16:30→21:46)
[2024-06-27 21:02] VITALS: BP 109/80; TEMP 97.9; O2SAT 95
[2024-06-27] MEDS: risperiDONE 1 MG TABLET PO SCH (21:46)
[2024-06-28 08:00] VITALS: BP 127/73; TEMP 97.6; O2SAT 96
[2024-06-28 16:17] VITALS: BP 118/58; TEMP 98; O2SAT 96
[2024-06-28 20:00] VITALS: BP 99/66; TEMP 99; O2SAT 97
[2024-06-28 20:17] VITALS: BP 99/66; TEMP 97.9; O2SAT 97
[2024-06-29 16:13] VITALS: BP 110/84; TEMP 98.1; O2SAT 96
[2024-06-29] MEDS: risperiDONE 1 MG TABLET PO SCH ×2 (17:09→21:08)
[2024-06-29] MEDS: OXCARBAZEPINE 150 MG TABLET PO SCH ×2 (17:11→21:07)
[2024-06-29 20:00] VITALS: BP 115/84; TEMP 98; O2SAT 97
[2024-06-30 08:00] VITALS: BP_SYST 120; BP_DIAS 59; BP_DIAS 69; TEMP 97.4; O2SAT 96
[2024-06-30] MEDS ORDERED: OXCARBAZEPINE 150 MG TABLET PO SCH (09:00)
[2024-06-30] MEDS: risperiDONE 1 MG TABLET PO SCH (09:20)
[2024-06-30] MEDS: OXCARBAZEPINE 150 MG TABLET PO SCH (09:20)
[2024-06-30 16:00] VITALS: BP 115/64; TEMP 97.6; O2SAT 96
[2024-06-30 20:00] VITALS: BP 142/96; TEMP 97.8; O2SAT 96
[2024-07-01 08:00] VITALS: BP 105/82; TEMP 97.5; O2SAT 97
[2024-07-01 16:00] VITALS: BP 116/81; TEMP 97.6; O2SAT 97
[2024-07-01 20:00] VITALS: BP 144/74; TEMP 98.6; O2SAT 96
[2024-07-01 20:03] VITALS: BP 144/74; TEMP 98.6; O2SAT 96
[2024-07-02 08:00] VITALS: BP 126/64; TEMP 97.4; O2SAT 96
[2024-07-02 16:00] VITALS: BP 130/76; TEMP 98; O2SAT 95
[2024-07-02 20:29] VITALS: BP 135/80; TEMP 97.8; O2SAT 95
[2024-07-03 08:06] LABS: BASOPHILS # (AUTO) 0.1 K/uL (0.0-0.2); BASOPHILS % (AUTO) 1.3 % (0.0-2.0); EOSINOPHILS # (AUTO) 0.2 K/uL (0.0-0.7); EOSINOPHILS % (AUTO) 4.3 % (0.0-6.0); HEMATOCRIT 28 % (39-51); HEMOGLOBIN 9.2 g/dL (13.5-17.5); LYMPHOCYTES # (AUTO) 1.1 K/uL (0.8-4.8); LYMPHOCYTES % (AUTO) 25.5 % (20.0-44.0); MEAN CORPUSCULAR HEMOGLOBIN 26 PG (26.0-33.0); MEAN CORPUSCULAR HGB CONC 33 g/dl (31.0-36.0); MEAN CORPUSCULAR VOLUME 79 fL (80-96); MONOCYTES # (AUTO) 0.7 K/uL (0.1-1.30); MONOCYTES % (AUTO) 16.6 % (2.0-12.0); NEUTROPHILS # (AUTO) 2.2 K/uL (1.8-8.9); NEUTROPHILS % (AUTO) 52.3 % (43.0-81.0); PLATELET COUNT (AUTO) 218 K/uL (150-450); RED BLOOD CELL COUNT(AUTO) 3.52 MIL/uL (4.5-6.0); RED CELL DISTRIBUTION WIDTH 17.5 % (11.5-15.0); WHITE BLOOD COUNT (AUTO) 4.2 K/uL (4.3-11.0)
[2024-07-03 08:17] LABS: ALANINE AMINOTRANSFERASE 29 U/L (12-78); ALBUMIN 2.1 g/dL (3.4-5.0); ALKALINE PHOSPHATASE 61 U/L (46-116); ASPARTATE AMINOTRANSFERASE 54 U/L (15-37); BILIRUBIN,TOTAL 0.4 mg/dL (0.2-1.0); CALCIUM, SERUM 7.6 mg/dL (8.5-10.1); CARBON DIOXIDE 28 mmol/L (21-32); CHLORIDE 99 mmol/L (98-107); CREATININE 0.8 mg/dL (0.6-1.3); GLUCOSE 88 mg/dL (74-106); POTASSIUM 3.8 mmol/L (3.5-5.1); SODIUM SERUM 135 mmol/L (136-145); TOTAL PROTEIN, SERUM 6.2 g/dL (6.4-8.2); UREA NITROGEN, BLOOD 24 mg/dL (7-18)
[2024-07-03 08:53] VITALS: BP 170/92; TEMP 97.3; O2SAT 96
[2024-07-03 09:46] LABS: ANISOCYTOSIS 1+; EOSINOPHILS % (MANUAL) 1 % (0-4); LYMPHOCYTES % (MANUAL) 17 % (16-48); MONOCYTES % (MANUAL) 15 % (0-11.0); NEUTROPHILS % (MANUAL) 67 (42-76); PLATELET ESTIMATE ADEQUATE
[2024-07-03 17:13] VITALS: BP 131/70; TEMP 97.3; O2SAT 98
[2024-07-03 20:04] VITALS: BP 131/70; TEMP 97.3; O2SAT 98
[2024-07-04 08:00] VITALS: BP 101/57; TEMP 97.8; O2SAT 94
[2024-07-04 08:04] VITALS: BP 101/57
== END 2024-07-04 13:25 | DRG 885 ==
LOC: GPS 14:49
PROVIDERS: ADMIT Psychiatry & Neurology Psychosomatic Medicine; ATTEND Nurse Practitioner Family
DX: F39 Unspecified mood [affective] disorder (principal); N17.0 Acute kidney failure with tubular necrosis; L03.113 Cellulitis of right upper limb; F03.93 Unspecified dementia, unspecified severity, with mood disturbance; F03.92 Unspecified dementia, unspecified severity, with psychotic disturbance; F29 Unspecified psychosis not due to a substance or known physiological condition; B86 Scabies; D64.9 Anemia, unspecified; E03.9 Hypothyroidism, unspecified; F31.9 Bipolar disorder, unspecified; I10 Essential (primary) hypertension; Z20.822 Contact with and (suspected) exposure to COVID-19; Z73.6 Limitation of activities due to disability
CPT/HCPCS: 36415; 80048-TC; 80053-TC; 80061-TC; 80164-TC; 82565-TC; 85025-TC; 92526; 92611-TC; 97112-TC; 97116-TC; 97530-TC; J1200; J1650; J3490

== ENCOUNTER 2024-10-05 19:16 | Inpatient (IN) | payer MEDICARE, OTHER ==
[~2024-10-05] VITALS: Ht 177.8 cm; Wt 54.9 kg
[~2024-10-05 19:16] MED LIST changes: +ACET325T53 PO; +ALLA266C2 TP; +ENOX40DI SQ; +IVER3TAB2 PO; +LORA-258 PO; +MAG30ORA PO; +MAGN400O6 PO; +MUPI22OI7 TP; +OLAN2.5T3 PO; +PANT40SU2 PO; +RISP1TAB7 PO
[2024-10-05] MEDS ORDERED: NA P133E RC (19:57)
[2024-10-05] MEDS ORDERED: RISP1TAB7 PO (19:57)
[2024-10-05] MEDS ORDERED: CALC500T53 PO (19:57)
[2024-10-05] MEDS ORDERED: ACET-637 PO (19:57)
[2024-10-05] MEDS ORDERED: OXCA150T13 PO (19:57)
[2024-10-05] MEDS ORDERED: ASCO500T10 PO (19:57)
[2024-10-05] MEDS ORDERED: OXCA300T15 PO (19:57)
[2024-10-05] MEDS ORDERED: RISP1TAB97 PO (19:57)
[2024-10-05 20:09] LABS: BASOPHILS % (AUTO) 0.3 % (0.0-2.0); EOSINOPHILS % (AUTO) 0.6 % (0.0-6.0); HEMATOCRIT 33 % (39-51); HEMOGLOBIN 10.8 g/dL (13.5-17.5); LYMPHOCYTES # (AUTO) 0.9 K/uL (0.8-4.8); LYMPHOCYTES % (AUTO) 11.9 % (20.0-44.0); MEAN CORPUSCULAR HEMOGLOBIN 28 PG (26.0-33.0); MEAN CORPUSCULAR HGB CONC 33 g/dl (31.0-36.0); MEAN CORPUSCULAR VOLUME 84 fL (80-96); MONOCYTES # (AUTO) 0.9 K/uL (0.1-1.30); MONOCYTES % (AUTO) 11.1 % (2.0-12.0); NEUTROPHILS % (AUTO) 76.1 % (43.0-81.0); PLATELET COUNT (AUTO) 190 K/uL (150-450); RED BLOOD CELL COUNT(AUTO) 3.88 MIL/uL (4.5-6.0); RED CELL DISTRIBUTION WIDTH 14.9 % (11.5-15.0); WHITE BLOOD COUNT (AUTO) 7.9 K/uL (4.3-11.0)
[2024-10-05 20:16] LABS: APPEARANCE,URINE Clear (CLEAR); BILIRUBIN,URINE Negative (NEGATIVE); BLOOD, URINE Negative Ery/uL (NEGATIVE); COLOR,URINE YELLOW (YELLOW); KETONES,URINE 15 mg/dL (NEGATIVE); LEUKOCYTE ESTERASE ,URINE Negative (NEGATIVE); NITRITE, URINE Negative (NEGATIVE); PH,URINE 6.5 (5.0-8.0); PROTEIN,URINE Trace mg/dl (NEGATIVE); UGLUCOSE Negative (NEGATIVE)
[2024-10-05] MEDS ORDERED: CEFTRIAXONE 1GM BAG (ER ONLY) 50 ML IV ONE (20:27)
[2024-10-05 20:28] LABS: CALCIUM, SERUM 7.7 mg/dL (8.5-10.1); CARBON DIOXIDE 29 mmol/L (21-32); CHLORIDE 96 mmol/L (98-107); CREATININE 1.1 mg/dL (0.6-1.3); GLUCOSE 129 mg/dL (74-106); POTASSIUM 3.5 mmol/L (3.5-5.1); SODIUM SERUM 133 mmol/L (136-145); UREA NITROGEN, BLOOD 23 mg/dL (7-18)
[2024-10-05 20:30] LABS: LACTIC ACID 2.1 mmol/L (0.4-2.0)
[2024-10-05] MEDS: CEFTRIAXONE 1 G in IV D5W 50 ML IV ONE (20:30)
[2024-10-05 20:33] LABS: ALANINE AMINOTRANSFERASE 16 U/L (12-78); ALKALINE PHOSPHATASE 58 U/L (46-116); ASPARTATE AMINOTRANSFERASE 19 U/L (15-37); BILIRUBIN,DIRECT 0.1 mg/dL (0.0-0.2); BILIRUBIN,TOTAL 0.2 mg/dL (0.2-1.0); TOTAL PROTEIN, SERUM 6.5 g/dL (6.4-8.2)
[2024-10-05 20:44] LABS: ADD URINE CULTURE NO; BACTERIA,URINE Few /HPF (None Seen); SQUAMOUS EPITHELIAL CELL,UR Few /HPF (None Seen); WBC,URINE 0-2 /HPF (0-3)
[2024-10-05] MEDS: IV NS 0.9% 1,000 ML BAG IV ONE (20:58)
[2024-10-05] MEDS ORDERED: IOHEXOL-350 100 ML VIAL IV ONE (21:38)
[2024-10-05] MEDS ORDERED: IV NS 0.9% 250 ML IV ONE (21:39)
[2024-10-05] MEDS ORDERED: Z GUARD REMEDY 4 OZ OINT TP PRN (23:00)
[2024-10-05] MEDS ORDERED: ACETAMINOPHEN 650 MG/SUPP.RECT RC PRN (23:00)
[2024-10-05] MEDS ORDERED: ONDANSETRON HCL/PF 4 MG/2 ML VIAL IVP PRN (23:00)
[2024-10-05] MEDS: PANTOPRAZOLE 40 MG VIAL IV SCH (23:46)
[2024-10-05] MEDS: IV D5/ 0.9% NACL 1,000 ML IV PRN (23:46)
[2024-10-05] MEDS: ENOXAPARIN SODIUM 40 MG/0.4 ML DISP.SYRIN SQ SCH (23:48)
[2024-10-06] VITALS: BP 135/67; TEMP 97.7; O2SAT 98
[2024-10-06 04:00] VITALS: BP 146/81; TEMP 98.1; O2SAT 97
[2024-10-06 07:01] LABS: BASOPHILS % (AUTO) 0.6 % (0.0-2.0); EOSINOPHILS # (AUTO) 0.1 K/uL (0.0-0.7); EOSINOPHILS % (AUTO) 2.6 % (0.0-6.0); HEMATOCRIT 30 % (39-51); HEMOGLOBIN 10.1 g/dL (13.5-17.5); LYMPHOCYTES # (AUTO) 0.8 K/uL (0.8-4.8); LYMPHOCYTES % (AUTO) 14.7 % (20.0-44.0); MEAN CORPUSCULAR HEMOGLOBIN 28 PG (26.0-33.0); MEAN CORPUSCULAR HGB CONC 34 g/dl (31.0-36.0); MEAN CORPUSCULAR VOLUME 82 fL (80-96); MONOCYTES # (AUTO) 0.6 K/uL (0.1-1.30); NEUTROPHILS # (AUTO) 4.1 K/uL (1.8-8.9); NEUTROPHILS % (AUTO) 71.1 % (43.0-81.0); PLATELET COUNT (AUTO) 169 K/uL (150-450); RED BLOOD CELL COUNT(AUTO) 3.65 MIL/uL (4.5-6.0); RED CELL DISTRIBUTION WIDTH 14.8 % (11.5-15.0); WHITE BLOOD COUNT (AUTO) 5.7 K/uL (4.3-11.0)
[2024-10-06 07:25] LABS: CALCIUM, SERUM 7.5 mg/dL (8.5-10.1); CARBON DIOXIDE 29 mmol/L (21-32); CHLORIDE 104 mmol/L (98-107); CREATININE 0.7 mg/dL (0.6-1.3); GLUCOSE 90 mg/dL (74-106); MAGNESIUM 1.9 mg/dL (1.8-2.4); PHOSPHORUS 3.2 mg/dL (2.5-4.9); POTASSIUM 3.5 mmol/L (3.5-5.1); SODIUM SERUM 137 mmol/L (136-145); UREA NITROGEN, BLOOD 15 mg/dL (7-18)
[2024-10-06 07:57] LABS: IRON, SERUM 17 ug/dl (50-175); TOTAL IRON BINDING CAPACITY 192 ug/dl (250-450)
[2024-10-06 08:00] VITALS: BP 152/65; TEMP 97.6; O2SAT 98
[2024-10-06] MEDS: LEVOTHYROXINE SODIUM 25 MCG TABLET PO SCH (08:24)
[2024-10-06 08:31] LABS: CHOLESTEROL 145 mg/dL (<200); HDL CHOLESTEROL 76 mg/dL (40-60); LDL 60 mg/dL (0-99); TRIGLYCERIDES 22 mg/dL (30-150)
[2024-10-06] MEDS: ASCORBIC ACID 500 MG TABLET PO SCH (09:02)
[2024-10-06] MEDS: AMLODIPINE BESYLATE 5 MG TABLET PO SCH (09:02)
[2024-10-06] MEDS: CALCIUM CARBONATE (1250) 500 MG TABLET PO SCH (09:03)
[2024-10-06] MEDS: FERROUS SULFATE (325 MG) 325 MG/TAB TABLET PO SCH (09:03)
[2024-10-06] MEDS: OXCARBAZEPINE 150 MG TABLET PO SCH ×2 (09:03→22:13)
[2024-10-06] MEDS: ASPIRIN 81 MG TAB.CHEW PO SCH (09:03)
[2024-10-06] MEDS: IVERMECTIN 3 MG TABLET PO SCH (09:06)
[2024-10-06 12:00] VITALS: BP 146/77; TEMP 97.7; O2SAT 99
[2024-10-06 16:00] VITALS: BP 144/72; TEMP 97.4; O2SAT 99
[2024-10-06 20:00] VITALS: BP 158/74; TEMP 98.5; O2SAT 95
[2024-10-07] VITALS: BP 157/78; TEMP 98.1; O2SAT 93
[2024-10-07 04:00] VITALS: BP 161/78; TEMP 98.5; O2SAT 99
[2024-10-07 07:16] LABS: BASOPHILS % (AUTO) 0.5 % (0.0-2.0); EOSINOPHILS # (AUTO) 0.2 K/uL (0.0-0.7); EOSINOPHILS % (AUTO) 5.4 % (0.0-6.0); HEMATOCRIT 32 % (39-51); HEMOGLOBIN 10.5 g/dL (13.5-17.5); LYMPHOCYTES # (AUTO) 0.9 K/uL (0.8-4.8); LYMPHOCYTES % (AUTO) 20.6 % (20.0-44.0); MEAN CORPUSCULAR HEMOGLOBIN 27 PG (26.0-33.0); MEAN CORPUSCULAR HGB CONC 33 g/dl (31.0-36.0); MEAN CORPUSCULAR VOLUME 83 fL (80-96); MONOCYTES # (AUTO) 0.5 K/uL (0.1-1.30); MONOCYTES % (AUTO) 10.8 % (2.0-12.0); NEUTROPHILS # (AUTO) 2.9 K/uL (1.8-8.9); NEUTROPHILS % (AUTO) 62.7 % (43.0-81.0); PLATELET COUNT (AUTO) 194 K/uL (150-450); RED BLOOD CELL COUNT(AUTO) 3.83 MIL/uL (4.5-6.0); WHITE BLOOD COUNT (AUTO) 4.6 K/uL (4.3-11.0)
[2024-10-07 07:27] LABS: CALCIUM, SERUM 7.7 mg/dL (8.5-10.1); CARBON DIOXIDE 30 mmol/L (21-32); CHLORIDE 99 mmol/L (98-107); CREATININE 0.6 mg/dL (0.6-1.3); GLUCOSE 85 mg/dL (74-106); MAGNESIUM 1.8 mg/dL (1.8-2.4); PHOSPHORUS 3.2 mg/dL (2.5-4.9); POTASSIUM 3.4 mmol/L (3.5-5.1); SODIUM SERUM 134 mmol/L (136-145); UREA NITROGEN, BLOOD 8 mg/dL (7-18)
[2024-10-07 08:00] VITALS: BP 165/76; TEMP 98.4; O2SAT 93
[2024-10-07] MEDS: POTASSIUM CHLORIDE 20 MEQ TAB.PRT.SR PO SCH (10:10)
[2024-10-07 12:00] VITALS: BP 142/70; TEMP 98.5; O2SAT 96
[2024-10-07 16:00] VITALS: BP 159/70; TEMP 97.9; O2SAT 97
[2024-10-07] MEDS: PANTOPRAZOLE 40 MG TABLET.DR PO SCH (22:44)
[2024-10-08 06:35] LABS: BASOPHILS % (AUTO) 0.4 % (0.0-2.0); EOSINOPHILS # (AUTO) 0.2 K/uL (0.0-0.7); EOSINOPHILS % (AUTO) 5.3 % (0.0-6.0); HEMATOCRIT 33 % (39-51); HEMOGLOBIN 11.1 g/dL (13.5-17.5); LYMPHOCYTES # (AUTO) 0.7 K/uL (0.8-4.8); LYMPHOCYTES % (AUTO) 17.5 % (20.0-44.0); MEAN CORPUSCULAR HEMOGLOBIN 28 PG (26.0-33.0); MEAN CORPUSCULAR HGB CONC 33 g/dl (31.0-36.0); MEAN CORPUSCULAR VOLUME 83 fL (80-96); MONOCYTES # (AUTO) 0.4 K/uL (0.1-1.30); MONOCYTES % (AUTO) 10.6 % (2.0-12.0); NEUTROPHILS # (AUTO) 2.7 K/uL (1.8-8.9); NEUTROPHILS % (AUTO) 66.2 % (43.0-81.0); PLATELET COUNT (AUTO) 208 K/uL (150-450); RED BLOOD CELL COUNT(AUTO) 4.02 MIL/uL (4.5-6.0); RED CELL DISTRIBUTION WIDTH 14.6 % (11.5-15.0); WHITE BLOOD COUNT (AUTO) 4.1 K/uL (4.3-11.0)
[2024-10-08 06:53] LABS: CALCIUM, SERUM 7.7 mg/dL (8.5-10.1); CARBON DIOXIDE 32 mmol/L (21-32); CHLORIDE 91 mmol/L (98-107); CREATININE 0.6 mg/dL (0.6-1.3); GLUCOSE 94 mg/dL (74-106); MAGNESIUM 1.8 mg/dL (1.8-2.4); PHOSPHORUS 3.5 mg/dL (2.5-4.9); POTASSIUM 3.1 mmol/L (3.5-5.1); SODIUM SERUM 128 mmol/L (136-145); UREA NITROGEN, BLOOD 9 mg/dL (7-18)
[2024-10-08 08:00] VITALS: BP 155/77; TEMP 98.1; O2SAT 99
[2024-10-08] MEDS: POTASSIUM CHLORIDE 20 MEQ TAB.PRT.SR PO ONE (08:52)
[2024-10-08 16:00] VITALS: BP 156/64; TEMP 98.2; O2SAT 96
[2024-10-08 18:31] LABS: URINE SODIUM, RANDOM 118 mmol/l (40-220)
[2024-10-09 06:46] LABS: BASOPHILS % (AUTO) 1.2 % (0.0-2.0); EOSINOPHILS # (AUTO) 0.2 K/uL (0.0-0.7); EOSINOPHILS % (AUTO) 5.8 % (0.0-6.0); HEMATOCRIT 32 % (39-51); HEMOGLOBIN 10.9 g/dL (13.5-17.5); LYMPHOCYTES # (AUTO) 0.8 K/uL (0.8-4.8); LYMPHOCYTES % (AUTO) 23.7 % (20.0-44.0); MEAN CORPUSCULAR HEMOGLOBIN 28 PG (26.0-33.0); MEAN CORPUSCULAR HGB CONC 34 g/dl (31.0-36.0); MEAN CORPUSCULAR VOLUME 82 fL (80-96); MONOCYTES # (AUTO) 0.5 K/uL (0.1-1.30); MONOCYTES % (AUTO) 14.4 % (2.0-12.0); NEUTROPHILS # (AUTO) 1.9 K/uL (1.8-8.9); NEUTROPHILS % (AUTO) 54.9 % (43.0-81.0); PLATELET COUNT (AUTO) 204 K/uL (150-450); RED BLOOD CELL COUNT(AUTO) 3.91 MIL/uL (4.5-6.0); RED CELL DISTRIBUTION WIDTH 14.4 % (11.5-15.0); WHITE BLOOD COUNT (AUTO) 3.5 K/uL (4.3-11.0)
[2024-10-09 07:10] LABS: CARBON DIOXIDE 31 mmol/L (21-32); CHLORIDE 92 mmol/L (98-107); CREATININE 0.6 mg/dL (0.6-1.3); GLUCOSE 90 mg/dL (74-106); MAGNESIUM 2.1 mg/dL (1.8-2.4); PHOSPHORUS 3.7 mg/dL (2.5-4.9); POTASSIUM 3.5 mmol/L (3.5-5.1); SODIUM SERUM 131 mmol/L (136-145); UREA NITROGEN, BLOOD 9 mg/dL (7-18)
[2024-10-09 07:33] LABS: URIC ACID 1.5 mg/dL (2.6-7.2)
[2024-10-09 08:00] VITALS: BP 158/78; TEMP 98.4; O2SAT 97
[2024-10-09 10:00] VITALS: BP 140/74
[2024-10-09] MEDS ORDERED: LEVO25TA7 PO (11:54)
[2024-10-10] MEDS ORDERED: LEVOTHYROXINE SODIUM 25 MCG TABLET PO SCH (07:30)
== END 2024-10-09 14:50 | DRG 71 ==
LOC: ER 19:27 → TELE1 21:51 → MEDSG1 10-07 11:21
PROVIDERS: ADMIT Nurse Practitioner Family; ATTEND Nurse Practitioner Acute Care
DX: G93.41 Metabolic encephalopathy (principal); E44.1 Mild protein-calorie malnutrition; E87.1 Hypo-osmolality and hyponatremia; F03.93 Unspecified dementia, unspecified severity, with mood disturbance; Z68.1 Body mass index [BMI] 19.9 or less, adult; E03.9 Hypothyroidism, unspecified; E87.6 Hypokalemia; E88.09 Other disorders of plasma-protein metabolism, not elsewhere classified; F25.9 Schizoaffective disorder, unspecified; I10 Essential (primary) hypertension; R13.10 Dysphagia, unspecified; Z20.822 Contact with and (suspected) exposure to COVID-19; F29 Unspecified psychosis not due to a substance or known physiological condition; R94.31 Abnormal electrocardiogram [ECG] [EKG]; R73.9 Hyperglycemia, unspecified; Z87.01 Personal history of pneumonia (recurrent)
CPT/HCPCS: 36415; 71045-TC; 80048-TC; 80061-TC; 80076-TC; 81001; 83540-TC; 83605-TC; 83735-TC; 83880; 83935-TC; 84100-TC; 84300-TC; 84443-TC; 84484-TC; 84550-TC; 85025-TC; 87040-TC; 87081-TC; 87086-TC; 92526; 92611-TC; 93307-TC; 97110-TC; 97116-TC; 97530-TC; A4223; G0378; J0696; J1650; J2470; J3490; J7030; J7042; J7050; J7060; Q9967

== ENCOUNTER 2024-10-19 17:35 | Inpatient (IN) | payer MEDICARE, OTHER ==
[~2024-10-19] VITALS: Ht 170.2 cm; Wt 50.8 kg
[~2024-10-19 17:35] MED LIST changes: +ACET-637 PO; -ALLA266C2 TP; +ASCO500T10 PO; +CALC500T53 PO; -CLON0.5T4 PO; -DIVA-76 PO; -ENOX40DI SQ; -LORA-258 PO; -LORA-259 PO; -MELA10CA PO; -MUPI22OI7 TP; +NA P133E RC; -OLAN2.5T3 PO; +OXCA150T13 PO; +OXCA300T15 PO; -QUET50TA PO; +RISP1TAB97 PO; -SULF1TAB48 PO
[2024-10-19 18:38] LABS: BASOPHILS # (AUTO) 0.1 K/uL (0.0-0.2); BASOPHILS % (AUTO) 1.2 % (0.0-2.0); EOSINOPHILS % (AUTO) 0.1 % (0.0-6.0); HEMATOCRIT 33 % (39-51); LYMPHOCYTES # (AUTO) 0.7 K/uL (0.8-4.8); LYMPHOCYTES % (AUTO) 5.5 % (20.0-44.0); MEAN CORPUSCULAR HEMOGLOBIN 27 PG (26.0-33.0); MEAN CORPUSCULAR HGB CONC 34 g/dl (31.0-36.0); MEAN CORPUSCULAR VOLUME 82 fL (80-96); MONOCYTES % (AUTO) 7.9 % (2.0-12.0); NEUTROPHILS # (AUTO) 10.4 K/uL (1.8-8.9); NEUTROPHILS % (AUTO) 85.3 % (43.0-81.0); PLATELET COUNT (AUTO) 297 K/uL (150-450); RED BLOOD CELL COUNT(AUTO) 4.02 MIL/uL (4.5-6.0); RED CELL DISTRIBUTION WIDTH 14.1 % (11.5-15.0); WHITE BLOOD COUNT (AUTO) 12.1 K/uL (4.3-11.0)
[2024-10-19 19:00] LABS: ALANINE AMINOTRANSFERASE 18 U/L (12-78); ALKALINE PHOSPHATASE 80 U/L (46-116); ASPARTATE AMINOTRANSFERASE 14 U/L (15-37); BILIRUBIN,DIRECT 0.1 mg/dL (0.0-0.2); BILIRUBIN,TOTAL 0.3 mg/dL (0.2-1.0); CALCIUM, SERUM 8.3 mg/dL (8.5-10.1); CARBON DIOXIDE 32 mmol/L (21-32); CHLORIDE 91 mmol/L (98-107); CREATININE 0.9 mg/dL (0.6-1.3); GLUCOSE 103 mg/dL (74-106); POTASSIUM 3.8 mmol/L (3.5-5.1); SODIUM SERUM 127 mmol/L (136-145); TOTAL PROTEIN, SERUM 7.2 g/dL (6.4-8.2); UREA NITROGEN, BLOOD 19 mg/dL (7-18)
[2024-10-19 19:04] VITALS: O2SAT 97
[2024-10-19 19:23] LABS: INR 1.01 (0.91-1.10); PARTIAL THROMBOPLASTIN TIME 31.9 SEC (24.3-34.3); PROTHROMBIN TIME 10.7 SECS (9.2-11.1)
[2024-10-19 20:33] LABS: APPEARANCE,URINE CLEAR (CLEAR); BILIRUBIN,URINE NEGATIVE (NEGATIVE); BLOOD, URINE NEGATIVE Ery/uL (NEGATIVE); COLOR,URINE YELLOW (YELLOW); KETONES,URINE NEGATIVE (NEGATIVE); LEUKOCYTE ESTERASE ,URINE NEGATIVE (NEGATIVE); NITRITE, URINE NEGATIVE (NEGATIVE); PH,URINE 7.5 (5.0-8.0); PROTEIN,URINE NEGATIVE (NEGATIVE); UGLUCOSE NEGATIVE (NEGATIVE); UROBILINOGEN,URINE 0.2 EU/dL (0.2)
[2024-10-19] MEDS ORDERED: MAGNESIUM HYDROXIDE 30 ML UDC PO PRN (21:00)
[2024-10-19] MEDS ORDERED: Z GUARD REMEDY 4 OZ OINT TP PRN (21:00)
[2024-10-19] MEDS ORDERED: MAG HYDROX/AL HYDROX/SIMETH 30 ML UDC PO PRN (21:00)
[2024-10-19] MEDS ORDERED: ONDANSETRON HCL/PF 4 MG/2 ML VIAL IVP PRN (21:00)
[2024-10-20 02:25] VITALS: BP 157/89; TEMP 98.6; O2SAT 98
[2024-10-20] MEDS: IV NS 0.9% 1,000 ML IV PRN (03:59)
[2024-10-20 07:44] LABS: ALBUMIN 2.7 g/dL (3.4-5.0); CALCIUM, SERUM 8.2 mg/dL (8.5-10.1); CARBON DIOXIDE 30 mmol/L (21-32); CHLORIDE 95 mmol/L (98-107); CREATININE 0.7 mg/dL (0.6-1.3); GLUCOSE 86 mg/dL (74-106); PHOSPHORUS 3.6 mg/dL (2.5-4.9); POTASSIUM 3.9 mmol/L (3.5-5.1); SODIUM SERUM 133 mmol/L (136-145); UREA NITROGEN, BLOOD 13 mg/dL (7-18)
[2024-10-20 07:47] LABS: BASOPHILS % (AUTO) 0.2 % (0.0-2.0); EOSINOPHILS % (AUTO) 0.3 % (0.0-6.0); HEMATOCRIT 34 % (39-51); HEMOGLOBIN 11.3 g/dL (13.5-17.5); LYMPHOCYTES # (AUTO) 0.6 K/uL (0.8-4.8); LYMPHOCYTES % (AUTO) 5.5 % (20.0-44.0); MEAN CORPUSCULAR HEMOGLOBIN 28 PG (26.0-33.0); MEAN CORPUSCULAR HGB CONC 34 g/dl (31.0-36.0); MEAN CORPUSCULAR VOLUME 82 fL (80-96); MONOCYTES # (AUTO) 0.7 K/uL (0.1-1.30); MONOCYTES % (AUTO) 6.8 % (2.0-12.0); NEUTROPHILS # (AUTO) 9.5 K/uL (1.8-8.9); NEUTROPHILS % (AUTO) 87.2 % (43.0-81.0); PLATELET COUNT (AUTO) 267 K/uL (150-450); RED BLOOD CELL COUNT(AUTO) 4.09 MIL/uL (4.5-6.0); RED CELL DISTRIBUTION WIDTH 14.4 % (11.5-15.0); WHITE BLOOD COUNT (AUTO) 10.9 K/uL (4.3-11.0)
[2024-10-20 08:00] VITALS: BP 137/68; TEMP 98.1; O2SAT 96
[2024-10-20] MEDS ORDERED: RISP0.5T65 PO (09:03)
[2024-10-20] MEDS ORDERED: PETR71OI2 TP (09:03)
[2024-10-20] MEDS: PANTOPRAZOLE 40 MG TABLET.DR PO SCH (10:08)
[2024-10-20] MEDS ORDERED: TRAMADOL HCL 50 MG TABLET PO PRN (13:00)
[2024-10-20] MEDS: FERROUS SULFATE (325 MG) 325 MG/TAB TABLET PO SCH (13:21)
[2024-10-20] MEDS: ASPIRIN 81 MG TAB.CHEW PO SCH (13:21)
[2024-10-20] MEDS: ASCORBIC ACID 500 MG TABLET PO SCH (13:21)
[2024-10-20] MEDS: CALCIUM CARBONATE (1250) 500 MG TABLET PO SCH (13:21)
[2024-10-20] MEDS: AMLODIPINE BESYLATE 5 MG TABLET PO SCH (13:22)
[2024-10-20 16:00] VITALS: BP 123/49; TEMP 99.1; O2SAT 93
[2024-10-20 20:00] VITALS: BP 138/61; TEMP 98.6; O2SAT 97
[2024-10-20] MEDS: OXCARBAZEPINE 150 MG TABLET PO SCH (22:35)
[2024-10-20] MEDS: risperiDONE 1 MG TABLET PO SCH (22:35)
[2024-10-21 07:14] LABS: BASOPHILS % (AUTO) 0.2 % (0.0-2.0); EOSINOPHILS % (AUTO) 0.1 % (0.0-6.0); HEMATOCRIT 31 % (39-51); HEMOGLOBIN 10.5 g/dL (13.5-17.5); LYMPHOCYTES # (AUTO) 0.5 K/uL (0.8-4.8); LYMPHOCYTES % (AUTO) 5.5 % (20.0-44.0); MEAN CORPUSCULAR HEMOGLOBIN 27 PG (26.0-33.0); MEAN CORPUSCULAR HGB CONC 34 g/dl (31.0-36.0); MEAN CORPUSCULAR VOLUME 81 fL (80-96); MONOCYTES # (AUTO) 0.8 K/uL (0.1-1.30); MONOCYTES % (AUTO) 8.3 % (2.0-12.0); NEUTROPHILS # (AUTO) 8.5 K/uL (1.8-8.9); NEUTROPHILS % (AUTO) 85.9 % (43.0-81.0); PLATELET COUNT (AUTO) 265 K/uL (150-450); RED BLOOD CELL COUNT(AUTO) 3.83 MIL/uL (4.5-6.0); RED CELL DISTRIBUTION WIDTH 14.1 % (11.5-15.0); WHITE BLOOD COUNT (AUTO) 9.9 K/uL (4.3-11.0)
[2024-10-21 07:21] LABS: CALCIUM, SERUM 8.1 mg/dL (8.5-10.1); CREATININE 0.8 mg/dL (0.6-1.3); MAGNESIUM 1.9 mg/dL (1.8-2.4); POTASSIUM 3.3 mmol/L (3.5-5.1)
[2024-10-21 07:55] LABS: THYROID STIMULATING HORMONE 13.54 uIU/mL (0.358-3.74); URIC ACID 2.5 mg/dL (2.6-7.2)
[2024-10-21 08:00] VITALS: BP 109/91; TEMP 98.6; O2SAT 96
[2024-10-21] MEDS: LEVOTHYROXINE SODIUM 75 MCG TABLET PO SCH (08:38)
[2024-10-21] MEDS: PANTOPRAZOLE 40 MG/PACK PACK PO SCH (08:38)
[2024-10-21] MEDS: cetrizine 10 MG TABLET PO SCH (08:39)
[2024-10-21] MEDS: POTASSIUM CHLORIDE 20 MEQ TAB.PRT.SR PO SCH (10:22)
[2024-10-21] MEDS: LEVOFLOXACIN 500 MG /D5W 100ML 500 MG in PREMIX 1 EA IV ONE (11:53)
[2024-10-21] MEDS: ENOXAPARIN SODIUM 40 MG/0.4 ML DISP.SYRIN SQ SCH (12:32)
[2024-10-21] MEDS: ACETAMINOPHEN 325 MG TABLET PO PRN (15:03)
[2024-10-21 15:59] LABS: CARBON DIOXIDE 27 mmol/L (21-32); CHLORIDE 94 mmol/L (98-107); GLUCOSE 124 mg/dL (74-106); POTASSIUM 3.7 mmol/L (3.5-5.1); SODIUM SERUM 130 mmol/L (136-145)
[2024-10-21 16:00] VITALS: BP 122/63; TEMP 99.2; O2SAT 95
[2024-10-21 16:00] LABS: CALCIUM, SERUM 8.7 mg/dL (8.5-10.1); CREATININE 0.9 mg/dL (0.6-1.3); UREA NITROGEN, BLOOD 20 mg/dL (7-18)
[2024-10-21] MEDS: ENSURE ENLIVE CHOC 237 ML CAN PO SCH (17:21)
[2024-10-21 20:00] VITALS: BP 132/59; TEMP 98.8; O2SAT 94
[2024-10-22 07:30] VITALS: BP 128/64; TEMP 98.1; O2SAT 96
[2024-10-22 07:58] LABS: BASOPHILS % (AUTO) 0.5 % (0.0-2.0); EOSINOPHILS % (AUTO) 0.4 % (0.0-6.0); HEMATOCRIT 29 % (39-51); HEMOGLOBIN 9.9 g/dL (13.5-17.5); LYMPHOCYTES # (AUTO) 0.7 K/uL (0.8-4.8); LYMPHOCYTES % (AUTO) 7.5 % (20.0-44.0); MEAN CORPUSCULAR HEMOGLOBIN 28 PG (26.0-33.0); MEAN CORPUSCULAR HGB CONC 34 g/dl (31.0-36.0); MEAN CORPUSCULAR VOLUME 82 fL (80-96); MONOCYTES % (AUTO) 11.1 % (2.0-12.0); NEUTROPHILS # (AUTO) 7.2 K/uL (1.8-8.9); NEUTROPHILS % (AUTO) 80.5 % (43.0-81.0); PLATELET COUNT (AUTO) 281 K/uL (150-450); RED BLOOD CELL COUNT(AUTO) 3.51 MIL/uL (4.5-6.0); RED CELL DISTRIBUTION WIDTH 14.3 % (11.5-15.0)
[2024-10-22 09:01] LABS: CALCIUM, SERUM 8.4 mg/dL (8.5-10.1); CREATININE 0.7 mg/dL (0.6-1.3); MAGNESIUM 1.8 mg/dL (1.8-2.4); PHOSPHORUS 2.8 mg/dL (2.5-4.9); POTASSIUM 4.2 mmol/L (3.5-5.1)
[2024-10-22] MEDS: LEVOFLOXACIN 250 MG /D5W 50 ML 250 MG in PREMIX 1 EA IV SCH (11:05)
[2024-10-22] MEDS ORDERED: LEVO500T90 PO (11:29)
[2024-10-22 16:00] VITALS: BP 134/65; TEMP 97.9; O2SAT 94
[2024-10-23 07:30] VITALS: BP 150/70; TEMP 98.4; O2SAT 95
[2024-10-23] MEDS ORDERED: IV NS 0.9% 1,000 ML IV PRN (08:59)
[2024-10-23 16:00] VITALS: BP 145/77; TEMP 98.2; O2SAT 97
[2024-10-23 22:47] VITALS: BP 125/84; TEMP 97.5; O2SAT 96
[2024-10-24 07:28] LABS: BASOPHILS % (AUTO) 0.7 % (0.0-2.0); EOSINOPHILS # (AUTO) 0.2 K/uL (0.0-0.7); EOSINOPHILS % (AUTO) 3.8 % (0.0-6.0); HEMATOCRIT 30 % (39-51); LYMPHOCYTES # (AUTO) 0.7 K/uL (0.8-4.8); LYMPHOCYTES % (AUTO) 13.8 % (20.0-44.0); MEAN CORPUSCULAR HEMOGLOBIN 28 PG (26.0-33.0); MEAN CORPUSCULAR HGB CONC 34 g/dl (31.0-36.0); MEAN CORPUSCULAR VOLUME 83 fL (80-96); MONOCYTES # (AUTO) 0.9 K/uL (0.1-1.30); MONOCYTES % (AUTO) 16.6 % (2.0-12.0); NEUTROPHILS # (AUTO) 3.5 K/uL (1.8-8.9); NEUTROPHILS % (AUTO) 65.1 % (43.0-81.0); PLATELET COUNT (AUTO) 353 K/uL (150-450); RED CELL DISTRIBUTION WIDTH 14.2 % (11.5-15.0); WHITE BLOOD COUNT (AUTO) 5.4 K/uL (4.3-11.0)
[2024-10-24 07:31] LABS: ALBUMIN 2.4 g/dL (3.4-5.0); BILIRUBIN,TOTAL 0.3 mg/dL (0.2-1.0); CALCIUM, SERUM 8.3 mg/dL (8.5-10.1); CREATININE 0.6 mg/dL (0.6-1.3); MAGNESIUM 1.9 mg/dL (1.8-2.4); PHOSPHORUS 4.2 mg/dL (2.5-4.9); POTASSIUM 3.9 mmol/L (3.5-5.1); TOTAL PROTEIN, SERUM 6.5 g/dL (6.4-8.2)
[2024-10-24 08:54] VITALS: BP 149/79
[2024-10-24] MEDS: LEVOFLOXACIN (250MG) 250 MG TABLET PO SCH (11:10)
== END 2024-10-24 19:22 | DRG 193 ==
LOC: ER 17:40 → MED 10-20 01:22
PROVIDERS: ADMIT Nurse Practitioner Family; ATTEND Nurse Practitioner Acute Care
DX: J15.9 Unspecified bacterial pneumonia (principal); G93.41 Metabolic encephalopathy; E44.1 Mild protein-calorie malnutrition; F03.93 Unspecified dementia, unspecified severity, with mood disturbance; Z68.1 Body mass index [BMI] 19.9 or less, adult; N17.9 Acute kidney failure, unspecified; E87.1 Hypo-osmolality and hyponatremia; E86.0 Dehydration; R62.7 Adult failure to thrive; E03.9 Hypothyroidism, unspecified; D72.829 Elevated white blood cell count, unspecified; D64.9 Anemia, unspecified; R13.10 Dysphagia, unspecified; Z20.822 Contact with and (suspected) exposure to COVID-19; E88.09 Other disorders of plasma-protein metabolism, not elsewhere classified; I10 Essential (primary) hypertension; R53.1 Weakness; F09 Unspecified mental disorder due to known physiological condition; M89.8X9 Other specified disorders of bone, unspecified site; E87.6 Hypokalemia; F31.9 Bipolar disorder, unspecified; Z87.01 Personal history of pneumonia (recurrent)
CPT/HCPCS: 36415; 71045-TC; 71250-TC; 80048-TC; 80053-TC; 80076-TC; 82040-TC; 83605-TC; 83735-TC; 84100-TC; 84439-TC; 84443-TC; 84484-TC; 84550-TC; 85025-TC; 85730-TC; 87040-TC; 87081-TC; 87086-TC; 97110-TC; 97112-TC; 97116-TC; 97530-TC; A4216; A4223; G0378; J1650; J1956; J7030